=== PATIENT | female | born 1950 | race Caucasian/White ===

== ENCOUNTER 2017-06-23 15:15 | Observation (INO) | payer MEDICARE, OTHER ==
[~2017-06-23 15:15] MED LIST: ASPI81 PO; PREG25 PO; PREV30CA36 PO; TOPR50TA PO
[2017-06-23] MEDS ORDERED: DEXTROSE 50% IN WATER 50 ML VIAL(D50) IV PUSH PRN (19:15)
[2017-06-23] MEDS ORDERED: SODIUM CHLORIDE 0.9% FLUSH 10 ML FLUSH IV FLUSH PRN ×3 (19:15→21:00)
[2017-06-23] MEDS ORDERED: NALOXONE HCL 0.4 MG/ML AMP IV PUSH PRN ×3 (19:15→21:00)
[2017-06-23] MEDS ORDERED: GLUCAGON 1 MG/ML VIAL OTHER PRN (19:15)
[2017-06-23 20:30] VITALS: BP 175/73; PULSE 82; RESP 20; TEMP 98; O2SAT 93
[2017-06-23] MEDS ORDERED: HEPARIN SODIUM - SQ 10,000 UNITS/ML VIAL SQ SCH ×2 (20:45→22:00)
[2017-06-23] MEDS ORDERED: SODIUM CHLORIDE 0.9% FLUSH 10 ML FLUSH IV FLUSH SCH ×3 (21:00)
[2017-06-23] MEDS ORDERED: INSULIN ASPART SUPPLEMENTAL SCALE SQ SCH (21:00)
[2017-06-23] MEDS ORDERED: SODI650T PO (21:26)
[2017-06-23] MEDS ORDERED: DEXI60CA3 PO (21:26)
[2017-06-23] MEDS ORDERED: LEVE250T5 PO (21:26)
[2017-06-23] MEDS ORDERED: LEVO50TA4 PO (21:26)
[2017-06-23] MEDS ORDERED: ALBU1AER5 INH (21:26)
[2017-06-23] MEDS ORDERED: LORA1TAB12 PO (21:26)
[2017-06-23] MEDS ORDERED: LYRI200C PO (21:26)
[2017-06-23] MEDS ORDERED: FLUT1INH INH (21:26)
[2017-06-23] MEDS ORDERED: LOMO2.5T PO (21:26)
[2017-06-23] MEDS ORDERED: CHOL5000 PO (21:26)
[2017-06-23] MEDS ORDERED: LATA.005%O EACH EYE (21:26)
[2017-06-23] MEDS ORDERED: OXYC-395 PO (21:26)
[2017-06-23] MEDS ORDERED: AMLO2.5T PO (21:26)
[2017-06-23] MEDS ORDERED: BRIM.15%O EACH EYE (21:26)
[2017-06-23] MEDS ORDERED: SIMV20TA PO (21:26)
[2017-06-23] MEDS ORDERED: PROM25TA10 PO (21:26)
[2017-06-23] MEDS ORDERED: CALC0.25 PO (21:26)
--- NOTE | 2017-06-23 21:40 | PD.CONS ---
[facility] Unknown Diagnoses: Past Family Social History Allergies: Coded Allergies: ciprofloxacin (Unverified Allergy, Severe, 12/08/16) diatrizoate meglumine (Unverified Allergy, Severe, 12/08/16) gadobenic acid (Unverified Allergy, Severe, 12/08/16) gadodiamide (Unverified Allergy, Severe, 12/08/16) gadoteridol (Unverified Allergy, Severe, 12/08/16) iodixanol (Unverified Allergy, Severe, 12/08/16) iohexol (Unverified Allergy, Severe, 12/08/16) penicillin G (Unverified Allergy, Severe, 12/08/16) povidone-iodine (Unverified Allergy, Severe, 12/08/16) prochlorperazine (Unverified Allergy, Severe, 12/08/16) Physical Exam Vital Signs Vital Signs Date Time Temp Pulse Resp B/P (MAP) Pulse Ox O2 Delivery O2 Flow Rate FiO2 06/23/17 20:30 98.0 82 20 175/73 (107) 93 Physical Exam GENERAL: This is a well-nourished, well-developed patient, in no apparent distress. SKIN: No rashes, ecchymoses or lesions. Cool and dry. HEAD: Atraumatic. Normocephalic. No temporal or scalp tenderness. EYES: Pupils equal round and reactive. Extraocular motions intact. No scleral icterus. No injection or drainage. ENT: Nose without bleeding, purulent drainage or septal hematoma. Throat without erythema, tonsillar hypertrophy or exudate. Uvula midline. Airway patent. NECK: Trachea midline. No JVD or lymphadenopathy. Supple, nontender, no meningeal signs. CARDIOVASCULAR: Regular rate and rhythm without murmurs, gallops, or rubs. RESPIRATORY: Clear to auscultation. Breath sounds equal bilaterally. No wheezes , rales, or rhonchi. GASTROINTESTINAL: Abdomen soft, non-tender, nondistended. No hepato-splenomegaly , or palpable masses. No guarding. MUSCULOSKELETAL: Extremities without clubbing, cyanosis, or edema. No joint tenderness, effusion, or edema noted. No calf tenderness. Negative Homans sign bilaterally. NEUROLOGICAL: Awake and alert. Cranial nerves II through XII intact. Motor and sensory grossly within normal limits. Five out of 5 muscle strength in all muscle groups. Normal speech. Eric Logan MD Jun 23, 2017 21:40
--- NOTE | 2017-06-23 21:41 | MB ---
cc: Kris Laurent MD,Alberto 0 Juventino Loomis MD DATE OF CONSULT: 06/23/2017 REASON FOR CONSULTATION: Evaluate right upper extremity AV access. HISTORY OF PRESENT ILLNESS: On 06/17, this 67-year-old female underwent right brachial basilic AV fistula creation for hemodialysis access. She returned home and over the ensuing several days developed progressive dehydration along with mental alteration. Her transported to the [facility] Emergency Room. She was admitted with dehydration, rehydrated and gradually improved. During the course of her evaluation, she described pain surrounding the right brachial basilic AV fistula creation incision. Duplex scan was interpreted as showing thrombosis of the brachial basilic AV fistula as well as the brachial artery at the anastomotic site. The radiologist describe sluggish flow within the ulnar and radial arteries. She was begun heparin. I had no privileges at [facility] to evaluate her in their hospital. Dr. Noman Ervin however traveled to [facility] and reported fairly normal post AV creation findings. Other than typical edema around the incision, he documented an easily palpable radial pulse and a brisk thrill overlying the course of the arterialized basilic vein. I reviewed the online ultrasound and felt that the 2 images were completely inadequate to interpret, specifically to describe the thrombosis and sluggish flow as described by the radiologist. I spoke with the patient's and suggested that once she was discharged that she be promptly evaluated in my office. We received a phone call this morning stating that the [facility] hospitalist wanted to transfer her to [facility]. He coordinated transfer with Dr. Hardin. Ms. Millan complains of mild discomfort surrounding the incision. She has no ischemic complaints within the right forearm or hand, specifically no numbness, paresthesias or pain. No fever, chills, or symptoms suggestive of infection. PHYSICAL EXAMINATION: GENERAL: Well-developed, obese 67-year-old female with normal affect. LUNGS: Symmetrically expanded and clear. HEART: Cardiac rhythm is sinus. No rubs, gallops, murmurs. No vein distention. An uncomplicated [place] reservoir is present within the right prepectoral region and is currently accessed with a 90-degree angle access needle. EXTREMITIES: The right brachial basilic AV fistula is patent. A brisk thrill is palpable along the course of the arterialized basilic vein. The creation incision is slightly edematous, but otherwise unremarkable. The right radial pulse is very easily palpable and the Doppler flow is robust, triphasic within the radial artery and palmar arch as well as ulnar artery. Fingertips are warm with brisk capillary refill. NEUROLOGIC: No focal deficit. IMPRESSION: 1. Postoperative incisional discomfort/edema right brachial basilic arteriovenous fistula site. 2. Patent right brachial basilic arteriovenous fistula. 3. Normal perfusion right upper extremity/hand. PLAN: The present findings are typical of post AV access creation edema and discomfort. I see no need to continue any coagulation. She will continue her prehospitalization medications. I encourage range of motion right elbow and elevation of the extremity to assist in edema resolution. She will follow up as previously scheduled in my office next week or sooner if needed. As far as I am concerned, she can be discharged from the hospital. Thank you for allowing me to participate in this nice lady's care. Kris Laurent MD JTS/cc , 09:11 PM , 09:40 PM
--- NOTE | 2017-06-23 22:13 | HHI.HP ---
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 Patient presented to [facility] due to concern for altered mental status and right upper arm pain at the surgical site. She reports that she was not eating or drinking much at home and became dehydrated. She was admitted at [facility] and provided hydration. Given that she complain of the right upper arm pain, and ultrasound obtained in the radiologist read it as possible thrombus/occlusion distal to the AV fistula. The patient was transferred here to [place] for evaluation by her vascular surgeon, Dr. Laurent. I reviewed all the medical records available. Her kidney functions appeared to have improved during her hospitalization at [place]. She does have anemia in her lowest hemoglobin is 7.8. However she denies any symptoms such as lightheadedness, palpitations, or fatigue. She was seen promptly by Dr. Laurent who indicated the patient's symptoms are typical postoperative discomfort and there was no indication there was a knee perfusion issues. He cleared the patient for discharge to follow-up outpatient. Ms. De Luna reports to me that she feels great and is ready to go home. Her whanau support worker is her and I had a long discussion with him regarding her hospital course and improvement. He also agreed the patient is at her baseline and feels comfortable taking her home to follow-up outpatient with her doctors. Review of Systems Constitutional: DENIES: Fever, Chills Respiratory: DENIES: Shortness of breath Cardiovascular: DENIES: Palpitations Except as stated in HPI: all other systems reviewed are Neg Past Family Social History Past Medical History And oral squamous cell carcinoma Seizure disorder Stage V CK D Fibromyalgia Hypertension Past Surgical History Tonsillectomy Tubal ligation Exploratory laparotomy Hysterectomy Cholecystectomy Bowel resection 2 cerebral aneurysm clip Hemorrhoidectomy Reported Medications Reported Meds & Active Scripts Active Reported Phenergan (Promethazine HCl) 25 Mg Tablet 25 Mg PO Q6H PRN Oxycodone (Oxycodone HCl) 10 Mg Tab 10 Mg PO Q4H PRN Lorazepam 1 Mg Tab 1 Mg PO HS PRN Xalatan Opth Drops (Latanoprost) 0.005% Drops 1 Drop EACH EYE HS Alphagan P Opth Drops (Brimonidine Tartrate) 0.15% Soln 1 Drop EACH EYE TID Lomotil (Diphenoxylate-Atropine) 2.5-0.025 Mg Tab 2 Tab PO Q6H PRN Vitamin D3 (Cholecalciferol) 5,000 Unit Cap 5,000 Units PO DAILY Calcitriol 0.25 Mcg Cap 0.25 Mcg PO DAILY Levetiracetam 250 Mg Tab 250 Mg PO BID Lyrica (Pregabalin) 200 Mg Cap 200 Mg PO BID Breo Ellipta Inh (Fluticasone/Vilanterol) 100-25 Mcg/Act Inh 1 Puff INH DAILY Use daily at the same time. Proair Respiclick Inh (Albuterol Sulfate) 90 Mcg/Act Aerp 2 Puff INH Q6H PRN Simvastatin 20 Mg Tab 20 Mg PO DAILY Levothyroxine (Levothyroxine Sodium) 50 Mcg Tab 50 Mcg PO DAILY Dexilant (Dexlansoprazole) 60 Mg Cap.dr.bp 60 Mg PO DAILY Sodium Bicarbonate 650 Mg Tab 650 Mg PO TIDPC Amlodipine (Amlodipine Besylate) 2.5 Mg Tab 2.5 Mg PO DAILY Aspirin 81 Mg Tab 81 Mg PO DAILY Toprol Xl (Metoprolol Succinate) 50 Mg Tabcr 50 Mg PO DAILY Lyrica (Pregabalin) 25 Mg Cap 0 Mg PO UNKNOWN DOSE Prevacid (Lansoprazole) 30 Mg Capcr 30 Mg PO DAILY Allergies: Coded Allergies: ciprofloxacin (Unverified Allergy, Severe, 12/08/16) diatrizoate meglumine (Unverified Allergy, Severe, 12/08/16) gadobenic acid (Unverified Allergy, Severe, 12/08/16) gadodiamide (Unverified Allergy, Severe, 12/08/16) gadoteridol (Unverified Allergy, Severe, 12/08/16) iodixanol (Unverified Allergy, Severe, 12/08/16) iohexol (Unverified Allergy, Severe, 12/08/16) penicillin G (Unverified Allergy, Severe, 12/08/16) povidone-iodine (Unverified Allergy, Severe, 12/08/16) prochlorperazine (Unverified Allergy, Severe, 12/08/16) Family History Reviewed and found to be noncontributory. Social History Chronic every day smoker, 1 pack per day 50 years. Denies alcohol or illicit drugs Physical Exam Vital Signs Vital Signs Date Time Temp Pulse Resp B/P (MAP) Pulse Ox O2 Delivery O2 Flow Rate FiO2 06/23/17 20:30 98.0 82 20 175/73 (107) 93 Physical Exam GENERAL: This is a well-nourished, well-developed patient, in no apparent distress. SKIN: Right upper arm with postoperative wound appeared clean. Minimal surrounding edema HEAD: Atraumatic. Normocephalic. No temporal or scalp tenderness. EYES: Pupils equal round and reactive. Extraocular motions intact. No scleral icterus. No injection or drainage. ENT: Nose without bleeding, purulent drainage or septal hematoma. Throat without erythema, tonsillar hypertrophy or exudate. Uvula midline. Airway patent. NECK: Trachea midline. No JVD or lymphadenopathy. Supple, nontender, no meningeal signs. CARDIOVASCULAR: Regular rate and rhythm without murmurs, gallops, or rubs. RESPIRATORY: Clear to auscultation. Breath sounds equal bilaterally. No wheezes , rales, or rhonchi. GASTROINTESTINAL: Abdomen soft, non-tender, nondistended. No hepato-splenomegaly , or palpable masses. No guarding. MUSCULOSKELETAL: Extremities without clubbing, cyanosis, or edema. No joint tenderness, effusion, or edema noted. No calf tenderness. Negative Homans sign bilaterally. NEUROLOGICAL: Awake and alert. Cranial nerves II through XII intact. Motor and sensory grossly within normal limits. Five out of 5 muscle strength in all muscle groups. Normal speech. Imaging CT scan report from outside hospital reviewed. No acute findings. Caprini VTE Risk Assessment Caprini VTE Risk Assessment: Mod/High Risk (score >= 2) Caprini Risk Assessment Model Point Value = 1 Point Value = 2 Point Value = 3 Point Value = 5 Age 41-60 Minor surgery BMI > 25 kg/m2 Swollen legs Varicose veins or History of unexplained or recurrent spontaneous Oral contraceptives or hormone replacement Sepsis (< 1 month) Serious lung disease, including pneumonia (< 1 month) Abnormal pulmonary function Acute myocardial infarction Congestive heart failure (< 1 month) History of inflammatory bowel disease Medical patient at bed rest Age 61-74 Arthroscopic surgery Major open surgery (> 45 min) Laparoscopic surgery (> 45 min) Malignancy Confined to bed (> 72 hours) Immobilizing plaster cast Central venous access Age >= 75 History of VTE Family history of VTE Factor V Leiden Prothrombin [id number] Lupus anticoagulant Anticardiolipin antibodies Elevated serum homocysteine Heparin-induced thrombocytopenia Other congenital or acquired thrombophilia Stroke (< 1 month) Elective arthroplasty Hip, pelvis, or leg fracture Acute spinal cord injury (< 1 month) Prophylaxis Regimen Total Risk Factor Score Risk Level Prophylaxis Regimen 0-1 Low Early ambulation 2 Moderate Order ONE of the following: *Sequential Compression Device (SCD) *Heparin 5000 units SQ BID 3-4 Higher Order ONE of the following medications: *Heparin 5000 units SQ TID *Enoxaparin/Lovenox 40 mg SQ daily (WT < 150 kg, CrCl > 30 mL/min) *Enoxaparin/Lovenox 30 mg SQ daily (WT < 150 kg, CrCl > 10-29 mL/min) *Enoxaparin/Lovenox 30 mg SQ BID (WT < 150 kg, CrCl > 30 mL/min) AND/OR *Sequential Compression Device (SCD) 5 or more Highest Order ONE of the following medications: *Heparin 5000 units SQ TID (Preferred with Epidurals) *Enoxaparin/Lovenox 40 mg SQ daily (WT < 150 kg, CrCl > 30 mL/min) *Enoxaparin/Lovenox 30 mg SQ daily (WT < 150 kg, CrCl > 10-29 mL/min) *Enoxaparin/Lovenox 30 mg SQ BID (WT < 150 kg, CrCl > 30 mL/min) AND *Sequential Compression Device (SCD) Assessment and Plan Assessment and Plan See history of present illness as above. In summary the patient was treated at an outside hospital for dehydration. She was transferred here for evaluation by vascular surgeon. She was probably evaluated by vascular surgery, Dr. Laurent and cleared for discharge from a vascular surgery standpoint. The patient's records has been extensively reviewed. She is deemed stable for discharge to follow up outpatient with her primary office spec, oncologist, PCP , and vascular surgery. We discussed her lab findings including anemia and current renal functions. Both patient and her agree to follow-up with her graphics production specialist regarding anemia. Patient is at her baseline. Discussed discharge planning with the patient and at length. Discharge home in stable condition Activity: Regular as tolerated Diet: Renal failure diet. Discussed proper hydration with the patient per her office spec instructions Meds: Resume all home medications. No new meds. Follow-up with: PCP, nephrology, oncology, vascular surgery Discussed Condition With Pt's and Eric Mcgarry MD Jun 23, 2017 22:13
== END 2017-06-23 23:04 | disposition home or self-care (01) ==
LOC: N07A 20:20 → UNDOADMIN 20:20 → N07A 20:20
PROVIDERS: ADMIT Internal Medicine; ATTEND Internal Medicine
DX: T82.848A Pain due to vascular prosthetic devices, implants and grafts, initial encounter (principal); R60.9 Edema, unspecified